=== PATIENT | female | born 1965 | race Asian ===

== ENCOUNTER 2016-10-18 08:29 | Emergency (ER) | payer OTHER ==
[~2016-10-18] VITALS: Ht 162.6 cm; Wt 65.9 kg
[2016-10-18] MEDS ORDERED: LORA-703 PO (08:43)
[2016-10-18] MEDS ORDERED: HYDROCODONE/ACETAMINOPHEN 5-325 MG TABLET PO ONE (09:00)
[2016-10-18 10:02] VITALS: BP 147/69
== END 2016-10-18 10:38 | disposition home or self-care (01) ==
LOC: EMS 08:33
DX: M25.531 Pain in right wrist (principal); M25.532 Pain in left wrist; M25.511 Pain in right shoulder; M79.641 Pain in right hand; M79.642 Pain in left hand; M79.671 Pain in right foot; M79.672 Pain in left foot
CPT/HCPCS: 99283

== ENCOUNTER 2018-02-11 15:18 | Emergency (ER) | payer OTHER, MEDICAID ==
[~2018-02-11] VITALS: Ht 162.6 cm; Wt 70.5 kg
[~2018-02-11 15:18] MED LIST: LORA-703 PO
[2018-02-11] MEDS ORDERED: CETI-290 PO (15:28)
[2018-02-11] MEDS ORDERED: PRED20 PO (15:28)
[2018-02-11] MEDS ORDERED: PROAIR HFA PO (15:28)
[2018-02-11] MEDS ORDERED: ALBU8.5H8 IH (16:25)
[2018-02-11] MEDS ORDERED: ALBUTEROL SULFATE 5 MG/ML 20 ML NEB SOLN [BULK] NEB ONE (16:30)
[2018-02-11] MEDS ORDERED: IPRATROPIUM BROMIDE 0.5 MG/2.5 ML NEB SOLUTION NEB ONE (16:30)
[2018-02-11 18:02] VITALS: BP 142/89
== END 2018-02-11 18:04 | disposition home or self-care (01) ==
LOC: EMS 15:19
DX: J45.909 Unspecified asthma, uncomplicated (principal)
CPT/HCPCS: 94644; 99285; J7611

== ENCOUNTER 2022-12-06 15:35 | Emergency (ER) | payer MEDICARE, OTHER ==
[~2022-12-06] VITALS: Ht 160 cm; Wt 72.7 kg
[~2022-12-06 15:35] MED LIST changes: +ALBU8.5H8 IH; +CETI-450 PO; -LORA-703 PO; +PRED-554 PO
[2022-12-06] MEDS ORDERED: [UNRECOGNIZED DRUG - CODE] IM (15:50)
[2022-12-06] MEDS ORDERED: UPAD15TA PO (15:50)
[2022-12-06] MEDS ORDERED: LOSA-381 PO (15:50)
[2022-12-06] MEDS ORDERED: IMMURAN PO (15:50)
[2022-12-06] MEDS ORDERED: DULERA IH (15:50)
[2022-12-06] MEDS ORDERED: KETOROLAC TROMETHAMINE 30 MG/ML VIAL IM ONE (16:15)
[2022-12-06] MEDS ORDERED: LIDOCAINE 5% TRANSDERMAL PATCH TD ONE (16:15)
[2022-12-06] MEDS ORDERED: CYCLOBENZAPRINE HCL 10 MG TABLET PO ONE (16:15)
[2022-12-06 16:31] VITALS: BP 135/82
[2022-12-06] MEDS ORDERED: LIDO700A15 TP (17:06)
[2022-12-06] MEDS ORDERED: CYCL-448 PO (17:06)
== END 2022-12-06 17:09 | disposition home or self-care (01) ==
LOC: EMS 15:50
DX: M54.50 Low back pain, unspecified (principal); I10 Essential (primary) hypertension; J45.909 Unspecified asthma, uncomplicated; Z98.890 Other specified postprocedural states; Z91.013 Allergy to seafood
CPT/HCPCS: 99283; 96372; J1885